=== PATIENT | female | born 1950 ===

== ENCOUNTER 2017-06-18 07:29 | Outpatient (CLI) | payer MEDICARE, OTHER ==
--- NOTE | 2017-06-18 08:04 | XRay Report ---
RIGHT SHOULDER RADIOGRAPHS INDICATION: Right shoulder pain. COMPARISON: None similar at this institution. FINDINGS: Frontal and Y views of the right shoulder, 3 projections demonstrate normal humeral head contour, well positioned against the glenoid. Mild greater tuberosity and acromioclavicular joint degenerative spurring. Preserved scapular contour. Normal visualized soft tissues, right ribs and lung. Osteopenia. A nonspecific clip-like density projects over peripheral right upper lobe, possibly extrinsic. CONCLUSION: No acute right shoulder radiographic abnormality with few degenerative changes, as described. Thank you for the opportunity to participate in this patient's care.
== END 2017-06-18 07:30 | disposition home or self-care (01) ==
LOC: SPVIMAG 07:29
PROVIDERS: ATTEND Orthopaedic Surgery Sports Medicine
DX: M19.011 Primary osteoarthritis, right shoulder (principal); M25.811 Other specified joint disorders, right shoulder; M85.811 Other specified disorders of bone density and structure, right shoulder